=== PATIENT | female | born 1945 | race Caucasian/White ===

== ENCOUNTER 2021-08-03 12:04 | Observation (INO) ==
[2021-08-03] MEDS ORDERED: NITROGLYCERIN SL 0.4 MG TABLET SL PRN (13:11)
[2021-08-03 13:52] LABS: Basophils # 0.1 10*3/uL (0.0-0.2); Basophils % 1.1 % (0.0-0.8); Eosinophils # 0.2 10*3/uL (0.0-0.87); Hematocrit 40.3 VOL% (35.7-47.0); Hemoglobin 13.8 GM/DL (12.0-16.0); Immature Granulocytes % 0.6 %; Immature Granulocytes Absolute 0.03 #; Lymphocytes # 1.5 10*3/uL (1.4-4.0); Lymphocytes % 28.7 % (21.3-54.2); Mean Corpuscular HGB Conc 34.2 GM/DL (32-36); Mean Corpuscular Volume 91.2 FL (87-102); Mean Platelet Volume 9.5 FL (9.6-12.0); Neutrophils % 60.6 % (38.7-73.9); Platelet Count 187 T/CUMM (130-400); Red Blood Count 4.42 MC/CUMM (3.8-5.5); Red Cell Distribution Width 12.9 % (9.3-17.3); White Blood Count 5.4 T/CUMM (4-12)
[2021-08-03 13:55] LABS: Albumin 3.9 G/DL (3.4-5.0); Bilirubin,Total 0.6 MG/DL (0.20-1.00); Calcium 9.2 MG/DL (8.5-10.1); Osmolality,Calculated 281.3 MOS/KG (273-304); Potassium 4.2 MMOL/L (3.5-5.1); Total Protein 7.2 G/DL (6.4-8.2)
[2021-08-03 15:17] LABS: Atypical Lymphocytes Few; Reactive Lymphocytes Few; Stomatocytes Few
[2021-08-03 15:18] LABS: Platelet Estimate Adequate
[2021-08-03] MEDS ORDERED: hydrALAZINE 20 MG/1 ML VIAL IV PRN ×2 (16:36→17:16)
[2021-08-03] MEDS ORDERED: DEXTROSE 50% 25 GM/50 ML VIAL IV PRN (17:04)
[2021-08-03] MEDS ORDERED: ACETAMINOPHEN 325 MG TABLET PO PRN (17:04)
[2021-08-03] MEDS ORDERED: DEXTROSE 50% 25 GM/50 ML SYRINGE IV PRN (17:04)
[2021-08-03] MEDS ORDERED: GLUCAGON 1 MG VIAL IM PRN ×2 (17:04)
[2021-08-03] MEDS ORDERED: ONDANSETRON 4 MG/2 ML VIAL IV PRN (17:04)
[2021-08-03] MEDS: LACTATED RINGERS 1,000 ML IV SCH (19:50)
[2021-08-03] MEDS: OMEGA 3 ACID ETHYL ESTERS 1 GM CAPSULE PO SCH (22:16)
[2021-08-03] MEDS: CITALOPRAM 20 MG TABLET PO SCH (22:17)
[2021-08-03] MEDS: PANTOPRAZOLE 40 MG TABLET PO SCH (22:17)
[2021-08-03] MEDS: ROSUVASTATIN 20 MG TABLET PO SCH (22:17)
[2021-08-04] MEDS: INSULIN LISPRO 100 UNIT/ML SUBCUT SCH ×5 (06:12→22:27)
[2021-08-04] MEDS: DORZOLAMIDE/TIMOLOL OPH SOLN 10 ML BOTTLE BOTH EYES SCH ×3 (06:12→22:27)
[2021-08-04] MEDS: LACTATED RINGERS 1,000 ML IV SCH (06:13)
[2021-08-04] MEDS: LATANOPROST 0.005% OPH SOLN 2.5 ML BOTTLE BOTH EYES SCH (06:13)
[2021-08-04] MEDS: ENOXAPARIN 40 MG/0.4 ML SYRINGE SUBCUT SCH (06:13)
[2021-08-04 06:30] LABS: Risk Ratio 3.02; VLDL Cholesterol 26.6 MG/DL
[2021-08-04] MEDS: LEVOTHYROXINE 75 MCG TABLET PO SCH (07:02)
[2021-08-04 08:08] LABS: Calcium 8.6 MG/DL (8.5-10.1); Osmolality,Calculated 281.3 MOS/KG (273-304); Potassium 3.6 MMOL/L (3.5-5.1)
[2021-08-04 08:31] LABS: Basophils # 0.1 10*3/uL (0.0-0.2); Basophils % 1.2 % (0.0-0.8); Eosinophils # 0.1 10*3/uL (0.0-0.87); Eosinophils % 3.2 % (0.00-10.9); Hematocrit 34.4 VOL% (35.7-47.0); Immature Granulocytes % 0.2 %; Immature Granulocytes Absolute 0.01 #; Lymphocytes # 1.5 10*3/uL (1.4-4.0); Lymphocytes % 37.1 % (21.3-54.2); Mean Corpuscular HGB Conc 33.4 GM/DL (32-36); Mean Platelet Volume 9.7 FL (9.6-12.0); Monocytes % 8.6 % (1.7-12.7); Neutrophils % 49.7 % (38.7-73.9); Platelet Count 160 T/CUMM (130-400); Red Cell Distribution Width 12.9 % (9.3-17.3); White Blood Count 4.1 T/CUMM (4-12)
[2021-08-04 08:35] LABS: Hemoglobin 11.5 GM/DL (12.0-16.0)
[2021-08-04] MEDS: OMEGA 3 ACID ETHYL ESTERS 1 GM CAPSULE PO SCH ×2 (09:54→22:26)
[2021-08-04] MEDS: VALSARTAN 160 MG TABLET PO SCH (09:54)
[2021-08-04] MEDS: PANTOPRAZOLE 40 MG TABLET PO SCH ×2 (09:54→22:28)
[2021-08-04] MEDS: CLOPIDOGREL 75 MG TABLET PO SCH (09:54)
[2021-08-04] MEDS ORDERED: GLUCAGON 1 MG VIAL IM PRN (10:06)
[2021-08-04] MEDS ORDERED: DEXTROSE 50% 25 GM/50 ML VIAL IV PRN (10:06)
[2021-08-04] MEDS: amLODIPine 5 MG TABLET PO SCH (11:11)
[2021-08-04] MEDS: CITALOPRAM 20 MG TABLET PO SCH (22:26)
[2021-08-04] MEDS: ROSUVASTATIN 20 MG TABLET PO SCH (22:27)
[2021-08-05] MEDS: LATANOPROST 0.005% OPH SOLN 2.5 ML BOTTLE BOTH EYES SCH (00:48)
[2021-08-05] MEDS: ENOXAPARIN 40 MG/0.4 ML SYRINGE SUBCUT SCH (00:48)
[2021-08-05] MEDS: LEVOTHYROXINE 75 MCG TABLET PO SCH (06:12)
[2021-08-05 07:02] LABS: Basophils # 0.1 10*3/uL (0.0-0.2); Basophils % 1.1 % (0.0-0.8); Eosinophils # 0.2 10*3/uL (0.0-0.87); Eosinophils % 3.5 % (0.00-10.9); Hematocrit 33.1 VOL% (35.7-47.0); Hemoglobin 12.1 GM/DL (12.0-16.0); Immature Granulocytes % 0.2 %; Immature Granulocytes Absolute 0.01 #; Lymphocytes # 1.5 10*3/uL (1.4-4.0); Lymphocytes % 33.2 % (21.3-54.2); Mean Corpuscular HGB Conc 36.6 GM/DL (32-36); Mean Corpuscular Volume 97.1 FL (87-102); Mean Platelet Volume 9.4 FL (9.6-12.0); Monocytes % 8.4 % (1.7-12.7); Neutrophils % 53.6 % (38.7-73.9); Platelet Count 148 T/CUMM (130-400); Red Blood Count 3.41 MC/CUMM (3.8-5.5); Red Cell Distribution Width 14.1 % (9.3-17.3); White Blood Count 4.5 T/CUMM (4-12)
[2021-08-05 07:22] LABS: Calcium 8.6 MG/DL (8.5-10.1); Osmolality,Calculated 280.4 MOS/KG (273-304); Potassium 3.9 MMOL/L (3.5-5.1)
[2021-08-05] MEDS ORDERED: MAGNESIUM SULF RIDER 2 GM/50 ML PREMIX IV ONE (09:01)
[2021-08-05] MEDS: INSULIN LISPRO 100 UNIT/ML SUBCUT SCH ×2 (09:29→11:59)
[2021-08-05] MEDS: VALSARTAN 160 MG TABLET PO SCH (09:31)
[2021-08-05] MEDS: OMEGA 3 ACID ETHYL ESTERS 1 GM CAPSULE PO SCH (09:31)
[2021-08-05] MEDS: DORZOLAMIDE/TIMOLOL OPH SOLN 10 ML BOTTLE BOTH EYES SCH (09:31)
[2021-08-05] MEDS: CLOPIDOGREL 75 MG TABLET PO SCH (09:32)
[2021-08-05] MEDS: amLODIPine 5 MG TABLET PO SCH (09:32)
[2021-08-05] MEDS: PANTOPRAZOLE 40 MG TABLET PO SCH (09:32)
[2021-08-05 13:09] VITALS: BP 153/72
== END 2021-08-05 14:20 | disposition home or self-care (01) ==
LOC: N.TELES 12:04 → N.ED 12:04 → SUATTDRO 17:05 → N.TELES 20:13
PROVIDERS: ADMIT Internal Medicine; ATTEND Phlebology